=== PATIENT | female | born 1980 | race Two or more races ===

== ENCOUNTER 2021-02-11 07:23 | Outpatient (CLI) | payer OTHER ==
[2021-02-11 08:37] LABS: BASOPHILS % (AUTO) 1 % (0-1); EOSINOPHILS % (AUTO) 2 % (1-7); LYMPHOCYTES % (AUTO) 30 % (22-44); MEAN CORPUSCULAR HEMOGLOBIN 25.2 pg (27.0-34.8); MEAN CORPUSCULAR HGB CONC 31.6 g/dL (32.4-35.8); MEAN PLATELET VOLUME 7.7 fL (7.4-10.4); MONOCYTES % (AUTO) 6 % (2-9); NEUTROPHILS % (AUTO) 61 % (42-75); PLATELET COUNT 273 x10^3/uL (130-400); RED BLOOD COUNT 4.03 x10^6/uL (3.82-5.3); RED CELL DISTRIBUTION WIDTH 30.1 % (9.6-15.2)
[2021-02-11 08:49] LABS: ALBUMIN 3.9 g/dL (3.4-5.0); ANION GAP 3 mmol/L (5-15); CHLORIDE 109 mmol/L (98-107)
[2021-02-11 08:54] LABS: ALANINE AMINOTRANSFERASE 21 U/L (12-78); ALKALINE PHOSPHATASE 81 U/L (45-117); BILIRUBIN,TOTAL 0.3 mg/dL (0.2-1.0); CREATININE 0.84 mg/dL (0.55-1.02); TOTAL PROTEIN 7.8 g/dL (6.4-8.2)
[2021-02-11] MEDS ORDERED: FERR324T5 PO (09:37)
[2021-02-11 09:43] LABS: MD MORPH REVIEW ONLY
[2021-02-11 09:44] LABS: <PLATELET ESTIMATE> ADEQUATE; <PLT MORPHOLOGY> NORMAL PLT MORPH; ANISOCYTOSIS 2+; MICROCYTOSIS 1+; STOMATOCYTES 1+
[2021-02-11 09:45] LABS: HYPOCHROMIA 1+
== END 2021-02-11 23:59 | disposition home or self-care (01) ==
LOC: STAR 07:23
PROVIDERS: ATTEND Obstetrics & Gynecology
DX: Z01.812 Encounter for preprocedural laboratory examination (principal); Z20.822 Contact with and (suspected) exposure to COVID-19; D64.9 Anemia, unspecified; N92.0 Excessive and frequent menstruation with regular cycle; D21.9 Benign neoplasm of connective and other soft tissue, unspecified
CPT/HCPCS: 36415; 80053; 84703; 85025; U0003

== ENCOUNTER 2021-02-17 11:45 | Day surgery (SDC) | payer OTHER ==
[~2021-02-17] VITALS: Ht 175.3 cm; Wt 89.6 kg
[~2021-02-17 11:45] MED LIST: EPHEDRINE 50 MG/ML, 1ML IVPush PRN; FENTANYL PF 100 MCG/2ML IV PRN; FERR324T5 PO; HYDROmorphone 1 MG/ML, 1ML INJ IVPush PRN; LABETALOL 5MG/ML, 20ML IV PRN; ONDANSETRON 2MG/ML, 2ML IVPush PRN; OXYcodone 5 MG/5 ML ORAL.SOL UDC PO PRN; PROMETHAZINE 25 MG/ML, 1ML IVPush PRN; hydrALAzine 20 MG/ML, 1ML IV PRN
[2021-02-17 12:43] VITALS: BP 112/75
[2021-02-17 12:46] LABS: HCG UR SG 1.022 (1.003-1.030)
[2021-02-17] MEDS ORDERED: CHLORHEXIDINE 15 ML UDC PO ONE (13:00)
[2021-02-17] MEDS ORDERED: LACTATED RINGERS 1,000 ML IV SCH (13:00)
[2021-02-17] MEDS ORDERED: ACETAMINOPHEN 500 MG TABLET PO ONE (13:00)
[2021-02-17] MEDS ORDERED: FENTANYL PF 250 MCG/5ML ONE (13:13)
[2021-02-17] MEDS ORDERED: MIDAZOLAM 1 MG/ML, 2ML ONE (13:13)
[2021-02-17] MEDS ORDERED: NEOSTIGMINE 1 MG/ML, 10ML ONE (14:26)
[2021-02-17] MEDS ORDERED: LIDOCAINE-MPF 2% ,5ML ONE (14:26)
[2021-02-17] MEDS ORDERED: SUCCINYLCHOLINE 20 MG/ML, 10ML ONE (14:26)
[2021-02-17] MEDS ORDERED: GLYCOPYRROLATE 0.2MG/1ML, 5ML ONE (14:26)
[2021-02-17] MEDS ORDERED: PROPOFOL 10 MG/ML, 20ML ONE (14:26)
[2021-02-17] MEDS ORDERED: ONDANSETRON 2MG/ML, 2ML ONE (14:26)
[2021-02-17] MEDS ORDERED: ROCURONIUM 10MG/ML,5ML ONE (14:26)
[2021-02-17] MEDS ORDERED: DEXAMETHASONE 4 MG/ML, 1ML ONE (14:26)
[2021-02-17] MEDS ORDERED: KETOROLAC 30 MG/1 ML ONE (14:26)
[2021-02-17] MEDS ORDERED: CEFAZOLIN 1,000 MG ONE (14:26)
[2021-02-17] MEDS ORDERED: BUPIVACAINE/PF 0.25% INFIL ONE (15:15)
[2021-02-17] MEDS ORDERED: BUPIVACAINE/PF 0.25% ONE ×2 (15:28→16:52)
[2021-02-17] MEDS ORDERED: EPINEPHRINE 1 MG/ML, 1ML ONE ×2 (15:28→16:52)
[2021-02-17] MEDS ORDERED: HYDROmorphone 1 MG/ML, 1ML INJ ONE (16:01)
[2021-02-17] MEDS ORDERED: FLUORESCEIN SODIUM 500 MG/5 ML ONE (16:30)
[2021-02-17 19:39] LABS: BASOPHILS % (AUTO) 0 % (0-1); EOSINOPHILS % (AUTO) 0 % (1-7); LYMPHOCYTES % (AUTO) 3 % (22-44); MEAN CORPUSCULAR HEMOGLOBIN 25.1 pg (27.0-34.8); MEAN CORPUSCULAR HGB CONC 31.2 g/dL (32.4-35.8); MONOCYTES % (AUTO) 1 % (2-9); PLATELET COUNT 260 x10^3/uL (130-400); RED BLOOD COUNT 4.11 x10^6/uL (3.82-5.3); RED CELL DISTRIBUTION WIDTH 29.3 % (9.6-15.2)
[2021-02-17 20:13] LABS: MD YES
[2021-02-17 20:20] LABS: NEUTROPHILS % (AUTO) 96 % (42-75)
[2021-02-17] MEDS ORDERED: OXYcodone 5 MG/5 ML ORAL.SOL UDC ONE (20:49)
== END 2021-02-17 21:10 | disposition home or self-care (01) ==
LOC: OR 11:45
PROVIDERS: ATTEND Obstetrics & Gynecology
DX: N92.0 Excessive and frequent menstruation with regular cycle (principal); D25.1 Intramural leiomyoma of uterus; D25.2 Subserosal leiomyoma of uterus; N80.0 Endometriosis of uterus; N72 Inflammatory disease of cervix uteri; N87.9 Dysplasia of cervix uteri, unspecified; N88.8 Other specified noninflammatory disorders of cervix uteri; N83.8 Other noninflammatory disorders of ovary, fallopian tube and broad ligament; D50.0 Iron deficiency anemia secondary to blood loss (chronic); Z79.899 Other long term (current) drug therapy; Z97.5 Presence of (intrauterine) contraceptive device; Z80.3 Family history of malignant neoplasm of breast
CPT/HCPCS: 36415; 58552; 81025; 85025; 86850; 86900; 88307; J0171; J0330; J0690; J1100; J1170; J1885; J2250; J2405; J2704; J2710; J3010; J7120